=== PATIENT | male | born 1935 | race Caucasian/White ===

== ENCOUNTER 2022-01-31 14:22 | Outpatient (CLI) | payer MEDICARE, OTHER | END 2022-01-31 14:23 | disposition home or self-care (01) | LOC: BICCT 14:22 | PROVIDERS: ATTEND Orthopaedic Surgery | DX: S32.432A Displaced fracture of anterior column [iliopubic] of left acetabulum, initial encounter for closed fracture (principal); S32.442A Displaced fracture of posterior column [ilioischial] of left acetabulum, initial encounter for closed fracture; S32.592A Other specified fracture of left pubis, initial encounter for closed fracture; M81.0 Age-related osteoporosis without current pathological fracture ==